=== PATIENT | male | born 1970 | race Caucasian/White ===

== ENCOUNTER 2017-05-07 16:18 | Observation (INO) | payer BC, SELFPAY ==
[2017-05-07] VITALS (9 sets, daily range): BP systolic 127–144; BP diastolic 78–89; PULSE 83–111; RESP 18–22; TEMP 36.8–37.7; O2SAT 2–97; BMI 33.5; BMI 71.8
--- NOTE | 2017-05-07 16:32 | XR_ITS ---
XR chest 2V Ordering Physician: Richy Aguilera Patient Age: 46 years: Male HISTORY: ITS.REASON: COUGH AND CHEST CONGESTION TECHNIQUE: PA lateral chest COMPARISON :No previous FINDINGS Multiple patchy areas of pneumonic infiltrate seen at the left lower lobe. Developing pneumonic consolidation most pronounced at the medial left lower lobe retrocardiac region.. Left upper lung field is clear There is also patchy infiltrates seen at the right lower lobe and likely a small patchy area of infiltrate the right middle lobe as well The heart is normal in size maryjo and mediastinal structures satisfactory. No pleural effusion. No pneumothorax. Ribs chest wall T-spine unremarkable IMPRESSION: Bibasilar pneumonia.: Patchy infiltrates are most pronounced seen throughout the LLL Most pronounced focal area of infiltrate is seen at the retrocardiac region left lower lobe Minimal Patchy infiltrates RLL and likely RML as well
--- NOTE | 2017-05-07 16:41 | HMH.EDUTC ---
[facility] [place] Disposition Clinical Impression: Thrush, Influenza A Pneumonia Qualifiers: Pneumonia type: due to influenza A virus Laterality: bilateral Lung location: lower lobe of lung Qualified Code(s): J11.00 - Influenza due to unidentified influenza virus with unspecified type of pneumonia Disposition: Still a Patient Condition on Discharge: Fair Additional Instructions: Can NOT use symbicort more often. This is NOT a rescue medication and is NOT to be increased in case of emergency or worsening symptoms. This has lead to you having thrush most likely. Time of Disposition: 18:05 (transfer to ER bed 7) Medical Decision Making Vital Signs: 05/07/17 16:34 05/07/17 17:24 05/07/17 17:25 Temperature 98.3 F Temperature Source Temporal Artery Scan Pulse Rate 89 89 Pulse Rate [Left Brachial] 111 H Respiratory Rate 20 Blood Pressure [Left Arm] 135/89 Blood Pressure Mean [Left Arm] 104 Blood Pressure Source [Left Arm] Automatic Cuff Blood Pressure Position [Left Arm] Sitting 02 Sat by Pulse Oximetry 93 L Oxygen Delivery Method Room Air 05/07/17 17:34 Temperature 98.9 F Temperature Source Tympanic Pulse Rate Pulse Rate [Left Brachial] 100 H Respiratory Rate 22 Blood Pressure [Left Arm] 129/78 Blood Pressure Mean [Left Arm] 95 Blood Pressure Source [Left Arm] Manual Cuff/ Auscultation Blood Pressure Position [Left Arm] Supine 02 Sat by Pulse Oximetry 97 Oxygen Delivery Method - Lab Data Lab Results 05/07/17 16:31: Influenza Type A Ag Positive A, Influenza Type B Ag Negative 05/07/17 16:55: Strep Scn Rapid Clinic Negative Orders (Tests/Meds): ED MEDICATIONS Discontinued Medications Generic Name Dose Route Start Last Admin Trade Name Freq PRN Reason Stop Dose Admin Albuterol/Ipratropium 3 ml 05/07/17 16:54 05/07/17 17:23 Duoneb 3ml Neb IH 05/07/17 16:55 3 ml ONCE ONE Administration ORDERS Category Date Time Status Complete Blood Count Auto Diff Stat Lab 05/07/17 16:54 Ordered Comprehensive Metabolic Panel Stat Lab 05/07/17 16:54 Ordered Creatine Kinase Stat Lab 05/07/17 16:54 Ordered Lactic Acid Stat Lab 05/07/17 16:54 Ordered Magnesium Stat Lab 05/07/17 17:13 Ordered Strep Screen Confirmation Stat Micro 05/07/17 16:55 Received - Radiology Data #1 Image(s): Chest Image Reviewed: Yes I have reviewed radiologist's interpretation virtual rad results: suspected multifocal PNA - Dany Inquiry Pt receiving controlled substance: No - Reevaluation(s) Time: 17:20 Reevaluation #1: Sherita in radiology report radiologist no longer in house. Agrees to send xray to virtual radiologist @[id number]: Lab now at BS. Pt restless, RR 24, appears SOA. Feels neb helped but is already wearing off. pt and both requesting transfer to ER because I am just that miserable . no longer feels he should remain over here. Feels muscle cramps are worsening since being here. Aware workup is in progress but adamant about transfer. @1803: Report called to Ariella in ER. Bed 7 available. [facility] [place] HPI - General Stated complaint: Fever, Cough, SoB, Congestion, Shaking Time Seen by Provider: 05/07/17 16:41 Mode of Arrival: Ambulatory Source of Information: Patient Limitations: No Limitations Description of Symptoms (Recalled from Triage Doc. by RN): C/O CHEST CONGESTION, FEVER, COUGH HEENT Symptoms (Recalled from RN notes): No Resp Symptoms (Recalled from RN notes): Yes (CHEST CONGESTION, COUGH) Skin Symptoms (Recalled from RN notes): No MS Symptoms (Recalled from RN notes): No Functional Status (Recalled from RN notes): N/A - History of Present Illness Provider Complaint: Here w/ due to cough, chest congestion, shortness of breath, weakness. Woke up morning w/ productive cough and brown sputum. Denies symptoms prior. Throughout the day, symptoms worsened. Since then, fever 100-101, bodyaches, chills, SOA, muscle cramps. PMHx asthma. Typically using symb
--- NOTE | 2017-05-07 16:53 | ED_ITS ---
[facility] [place] Disposition Clinical Impression: Thrush, Influenza A Pneumonia Qualifiers: Pneumonia type: due to influenza A virus Laterality: bilateral Lung location: lower lobe of lung Qualified Code(s): J11.00 - Influenza due to unidentified influenza virus with unspecified type of pneumonia Disposition: Still a Patient Condition on Discharge: Fair Additional Instructions: Can NOT use symbicort more often. This is NOT a rescue medication and is NOT to be increased in case of emergency or worsening symptoms. This has lead to you having thrush most likely. Time of Disposition: 18:05 (transfer to ER bed 7) Medical Decision Making Vital Signs: 05/07/17 16:34 05/07/17 17:24 05/07/17 17:25 Temperature 98.3 F Temperature Source Temporal Artery Scan Pulse Rate 89 89 Pulse Rate [Left Brachial] 111 H Respiratory Rate 20 Blood Pressure [Left Arm] 135/89 Blood Pressure Mean [Left Arm] 104 Blood Pressure Source [Left Arm] Automatic Cuff Blood Pressure Position [Left Arm] Sitting 02 Sat by Pulse Oximetry 93 L Oxygen Delivery Method Room Air 05/07/17 17:34 Temperature 98.9 F Temperature Source Tympanic Pulse Rate Pulse Rate [Left Brachial] 100 H Respiratory Rate 22 Blood Pressure [Left Arm] 129/78 Blood Pressure Mean [Left Arm] 95 Blood Pressure Source [Left Arm] Manual Cuff/ Auscultation Blood Pressure Position [Left Arm] Supine 02 Sat by Pulse Oximetry 97 Oxygen Delivery Method - Lab Data Lab Results 05/07/17 16:31: Influenza Type A Ag Positive A, Influenza Type B Ag Negative 05/07/17 16:55: Strep Scn Rapid Clinic Negative Orders (Tests/Meds): ED MEDICATIONS Discontinued Medications Generic Name Dose Route Start Last Admin Trade Name Freq PRN Reason Stop Dose Admin Albuterol/Ipratropium 3 ml 05/07/17 16:54 05/07/17 17:23 Duoneb 3ml Neb IH 05/07/17 16:55 3 ml ONCE ONE Administration ORDERS Category Date Time Status Complete Blood Count Auto Diff Stat Lab 05/07/17 16:54 Ordered Comprehensive Metabolic Panel Stat Lab 05/07/17 16:54 Ordered Creatine Kinase Stat Lab 05/07/17 16:54 Ordered Lactic Acid Stat Lab 05/07/17 16:54 Ordered Magnesium Stat Lab 05/07/17 17:13 Ordered Strep Screen Confirmation Stat Micro 05/07/17 16:55 Received - Radiology Data #1 Image(s): Chest Image Reviewed: Yes I have reviewed radiologist's interpretation virtual rad results: suspected multifocal PNA - Dany Inquiry Pt receiving controlled substance: No - Reevaluation(s) Time: 17:20 Reevaluation #1: Sherita in radiology report radiologist no longer in house. Agrees to send xray to virtual radiologist @[id number]: Lab now at BS. Pt restless, RR 24, appears SOA. Feels neb helped but is already wearing off. pt and both requesting transfer to ER because I am just that miserable . no longer feels he should remain over here. Feels muscle cramps are worsening since being here. Aware workup is in progress but adamant about transfer. @1803: Report called to Ariella in ER. Bed 7 available. [facility] [place] HPI - General Stated complaint: Fever, Cough, SoB, Congestion, Shaking Time Seen by Provider: 05/07/17 16:41 Mode of Arrival:
[2017-05-07 17:19] LABS: UTC Influenza A Antigen Positive (Negative); UTC Influenza B Antigen Negative (Negative)
[2017-05-07 17:19] LABS: UTC Strep Screen (Rapid) Negative (Negative)
[2017-05-07 18:15] LABS: Basophils # 0.2 K/mm3 (0-0.2); Basophils % 0.9 % (0.1-2.0); Eosinophils # 0.2 K/mm3 (0.0-0.4); Eosinophils % 0.7 % (0.1-12.0); Hematocrit 42.4 % (42.0-52.0); Hemoglobin 14.2 g/dL (14.1-18.0); Lymphocytes # 0.9 K/mm3 (0.7-4.5); Lymphocytes % 3.6 K/mm3 (10-50); Mean Corpuscular HGB Conc 33.5 g/dL (31.8-35.4); Mean Corpuscular Hemoglobin 28.9 pg (27.0-31.2); Mean Corpuscular Volume 86.4 fl (80-94); Mean Platelet Volume 7.4 fl (7.4-10.4); Monocytes # 0.8 K/mm3 (0.1-1.0); Monocytes % 3.4 % (1.7-9.3); Neutrophils % 91.5 % (37.0-80.0); Platelet Count 407 K/mm3 (142-424); Red Blood Count 4.91 M/mm3 (4.60-6.20)
[2017-05-07 18:18] LABS: MANUAL DIFFERENTIAL MANUAL DIFFERENTIAL (MANUAL DIFF)
[2017-05-07 18:23] LABS: Magnesium 2.4 mg/dL (1.4-2.2)
[2017-05-07 18:29] LABS: Albumin Level 3.1 gm/dL (3.4-5.0); Aspartate Amino Transferase 23 U/L (15-37); Blood Urea Nitrogen 14 mg/dL (7-18); Chloride 100 mmol/L (98-107); Creatinine Clearance Estimated 117 mL/min (0-300); Estimated Glomerular Filt Rate 65 ml/min (>60); GFR (African American) 79 ML/MIN (>60); Sodium 136 mmol/L (136-145)
[2017-05-07 18:30] LABS: Alanine Aminotransferase 36 U/L (12-78); Albumin/Globulin Ratio 0.6 (1.1-1.8); Alkaline Phosphatase 91 U/L (46-116); Anion Gap 16.5 mEq/L (5-15); Bilirubin,Total 0.4 mg/dL (0.2-1.0); Carbon Dioxide 24 mmol/L (21.0-32.0); Creatine Kinase 862 U/L (39-308); Globulin 4.9 gm/dl (1.3-3.2); Glucose 139 mg/dL (74-106); Potassium 4.5 mmoL/L (3.5-5.1)
--- NOTE | 2017-05-07 18:37 | HMH.EDGENADL ---
ED Disposition Clinical Impression: Thrush, Influenza A Pneumonia Qualifiers: Pneumonia type: due to influenza A virus Laterality: bilateral Lung location: lower lobe of lung Qualified Code(s): J11.00 - Influenza due to unidentified influenza virus with unspecified type of pneumonia Disposition: Still a Patient Condition on Discharge: Fair - Critical Care Critical Care Time: No Attestation: On 05/07/17, the high probability of a clinically significant, sudden or life threatening deterioration of the following system(s) required my full and direct attention, intervention and personal management. The time I documented below is in addition to time spent performing reported procedures but includes the following listed in this critical care notation. Medical Decision Making Vital Signs: 05/07/17 16:34 05/07/17 17:24 05/07/17 17:25 Temperature 98.3 F Temperature Source Temporal Artery Scan Pulse Rate 89 89 Pulse Rate [Left Brachial] 111 H Respiratory Rate 20 Blood Pressure [Left Arm] 135/89 Blood Pressure [Right Arm] Blood Pressure Mean [Left Arm] 104 Blood Pressure Mean [Right Arm] Blood Pressure Source [Left Arm] Automatic Cuff Blood Pressure Source [Right Arm] Blood Pressure Position [Left Arm] Sitting Blood Pressure Position [Right Arm] 02 Sat by Pulse Oximetry 93 L Oxygen Delivery Method Room Air 05/07/17 17:34 05/07/17 18:21 Temperature 98.9 F 98.2 F Temperature Source Tympanic Oral Pulse Rate Pulse Rate [Left Brachial] 100 H 95 H Respiratory Rate 22 20 Blood Pressure [Left Arm] 129/78 137/89 Blood Pressure [Right Arm] 137/89 Blood Pressure Mean [Left Arm] 95 105 Blood Pressure Mean [Right Arm] 105 Blood Pressure Source [Left Arm] Manual Cuff/ Auscultation Automatic Cuff Blood Pressure Source [Right Arm] Automatic Cuff Blood Pressure Position [Left Arm] Supine Supine Blood Pressure Position [Right Arm] Supine 02 Sat by Pulse Oximetry 97 96 Oxygen Delivery Method Room Air - Lab Data Lab Results 05/07/17 16:31: Influenza Type A Ag Positive A, Influenza Type B Ag Negative 05/07/17 16:55: Strep Scn Rapid Clinic Negative 05/07/17 18:00: WBC 24.0 H*, RBC 4.91, Hgb 14.2, Hct 42.4, MCV 86.4, MCH 28.9, MCHC 33.5, RDW 13.0, Plt Count 407, MPV 7.4, Neut % (Auto) 91.5 H, Lymph % (Auto) 3.6 L, Brewster % (Auto) 3.4, Eos % (Auto) 0.7, Baso % (Auto) 0.9, Neut # (Auto) 22.0 H, Lymph # (Auto) 0.9, Brewster # (Auto) 0.8, Eos # (Auto) 0.2, Baso # (Auto) 0.2, Total Counted 100, Neutrophils % (Manual) 92 H, Band Neutrophils % 2.0, Lymphocytes % (Manual) 4 L, Monocytes % (Manual) 2, Platelet Estimate Normal, RBC Morphology Normal 05/07/17 18:00: Sodium 136, Potassium 4.5, Chloride 100, Carbon Dioxide 24, Anion Gap 16.5 H, BUN 14, Creatinine 1.20, Estimated Creat Clear 117, Estimated GFR 65, Est GFR ( Amer) 79, Glucose 139 H, Calcium 9.0, Total Bilirubin 0.4, AST 23, ALT 36, Alkaline Phosphatase 91, Total Creatine Kinase 862 H*, Total Protein 8.0, Albumin 3.1 L, Globulin 4.9 H, Albumin/Globulin Ratio 0.6 L 05/07/17 18:00: Lactic Acid 3.2 H 05/07/17 18:00: Magnesium 2.4 H Result diagrams: 05/07/17 18:00 05/07/17 18:00 Orders (Tests/Meds): ED MEDICATIONS Generic Name Dose Route Start Last Admin Trade Name Freq PRN Reason Stop Dose Admin Sodium Chloride 1,000 mls @ 999 mls/hr 05/07/17 18:45 05/07/17 18:37 Sod Chlor 0.9% 1000ml Bag IV 05/07/17 19:45 999 mls/hr .Q1H1M BISI Administration Ceftriaxone Sodium 1 gm/ 50 mls @ 100 mls/hr 05/07/17 18:46 05/07/17 19:07 Sodium Chloride IV 05/07/17 19:15 100 mls/hr ONCE ONE Administration Discontinued Medications Generic Name Dose Route Start Last Admin Trade Name Freq PRN Reason Stop Dose Admin Albuterol/Ipratropium 3 ml 05/07/17 16:54 05/07/17 17:23 Duoneb 3ml Neb IH 05/07/17 16:55 3 ml ONCE ONE Administration Azithromycin 500 mg/ Sodium 250 mls @ 250 mls/hr 05/07/17 18:46 Chloride I
[2017-05-07 18:41] LABS: Lactic Acid 3.2 mmol/L (0.4-2.0)
[2017-05-07 19:05] LABS: Lymphocytes % 4 % (10-50); Monocytes % 2 % (2-9); Neutrophils % 92 % (42-76); Total Cells Counted 100
[2017-05-07 19:06] LABS: Platelet Estimate Normal; RBC Morphology Normal
--- NOTE | 2017-05-07 19:41 | PC.NURSE ---
TAMIFLU NOT AVAILABLE IN ER AT [facility] TIME. INFORMED PRIMARY NURSE DURING REPORT HANDOFF THAT PT WILL NEED THAT DOSE.
[2017-05-07 21:02] LABS: Troponin I < 0.02 ng/ml (0.00-0.06)
[2017-05-07 22:01] LABS: Reflex Lactic Add Lactic Reflex
[2017-05-07 22:35] LABS: Lactic Acid Follow Up (RFLX 1) 1.8 (0.4-2.0)
[2017-05-08] VITALS: BP 124/71; PULSE 84; RESP 18; TEMP 36.4
--- NOTE | 2017-05-08 01:03 | PC.NURSE ---
lAYING IN BED RESTING AT THIS TIME. WAS HAVING SOME SOA ON ADMISSION. AFTER APPLYING 2 L O2 PER NC AND SETTING A FAN IN ROOM, PT BREATHING EASIER. HAD SOME RHONCHI IN RIGHT LOWER LOBE.RESP ARE EVEN AND NONLABORED. HAD A HEADACHE, RELIEVED WITH TYLENOL. HAS BEEN AFEBRILE. IV IS PATENT, BED LOCKED IN LOW POSITION, SIDE RAILS UP X 2, CALL TIAN IN REACH. ENCOURAGED TO USE CALL LIGHT IF NEEDS. WILL CONTINUE TO MONITOR.
[2017-05-08 04:00] VITALS: BP 125/77; PULSE 80; RESP 18; TEMP 36.6; O2SAT 96
[2017-05-08 06:09] VITALS: PULSE 67; PULSE 70; O2SAT 93
[2017-05-08 07:03] LABS: Basophils % 0.1 % (0.1-2.0); Eosinophils % 0.1 % (0.1-12.0); Hemoglobin 13.7 g/dL (14.1-18.0); Lymphocytes % 5.4 K/mm3 (10-50); Mean Corpuscular HGB Conc 33.4 g/dL (31.8-35.4); Mean Corpuscular Hemoglobin 29.2 pg (27.0-31.2); Mean Corpuscular Volume 87.4 fl (80-94); Mean Platelet Volume 7.7 fl (7.4-10.4); Monocytes # 0.4 K/mm3 (0.1-1.0); Monocytes % 2.1 % (1.7-9.3); Neutrophils # 17.5 K/mm3 (1.8-7.8); Neutrophils % 92.4 % (37.0-80.0); Platelet Count 434 K/mm3 (142-424); Red Blood Count 4.69 M/mm3 (4.60-6.20); Red Cell Distribution Width 12.9 % (11.5-17.5)
[2017-05-08 07:12] LABS: Anion Gap 12.5 mEq/L (5-15); Blood Urea Nitrogen 15 mg/dL (7-18); Carbon Dioxide 25 mmol/L (21.0-32.0); Chloride 105 mmol/L (98-107); Creatinine Clearance Estimated 117 mL/min (0-300); Creatinine,Serum 0.83 mg/dL (0.70-1.30); Estimated Glomerular Filt Rate 99 ml/min (>60); GFR (African American) 120 ML/MIN (>60); Glucose 162 mg/dL (74-106); Potassium 4.5 mmoL/L (3.5-5.1); Sodium 138 mmol/L (136-145)
--- NOTE | 2017-05-08 07:18 | P.CONPHA_ITS ---
[facility] Pharmacy VTE Monitoring - Patient Demographics Admission date: 05/07/17 Report Date: 05/08/17 Time: 07:18 Allergies/Adverse Reactions: Patient Allergies No Known Allergies Allergy (Verified 05/07/17 16:37) Height: 1.8 m Weight: 233.8 kg Patient Problems: Current Active Problems Thrush (Acute) Influenza A (Acute) Pneumonia (Acute) - VTE Risk Labs: VTE Related Lab Results Hgb 14.2 g/dL (14.1-18.0) 05/07/17 18:00 Hct 42.4 % (42.0-52.0) 05/07/17 18:00 Plt Count 407 K/mm3 (142-424) 05/07/17 18:00 BUN 14 mg/dL (7-18) 05/07/17 18:00 Creatinine 1.20 mg/dL (0.70-1.30) 05/07/17 18:00 Estimated Creat Clear 117 mL/min (0-300) 05/07/17 18:00 Was VTE Risk Assessment Performed: Yes VTE Score: 7 VTE Risk Level: Moderate Risk Clinical Trial Participant: No - Prophylaxis VTE Prophylaxis Ordered?: Yes Types of VTE Prophylaxis: TEDS Knee High Location of Applied Device: Bilateral Lower Extremeties
[2017-05-08 07:21] LABS: MANUAL DIFFERENTIAL MANUAL DIFFERENTIAL (MANUAL DIFF)
[2017-05-08 07:38] VITALS: BP 123/78; RESP 20; TEMP 36.2; O2SAT 95
[2017-05-08 08:29] LABS: Lymphocytes % 5 % (10-50); Monocytes % 2 % (2-9); Neutrophils % 93 % (42-76); Platelet Estimate Normal; RBC Morphology Normal; Total Cells Counted 100
[2017-05-08 09:31] VITALS: PULSE 70; PULSE 74
[2017-05-08 10:34] VITALS: BMI 32.5
--- NOTE | 2017-05-08 12:32 | HMH.HPDC ---
General - General Admission date: 05/07/17 Discharge date: 05/08/17 *Admission Date: 05/07/17 *Chief complaint: cough *History of present illness: this wm who has ongoing cough and fever with dec energy progressive over the last few days with hx of asthma and has failed op meds and treatment presented to ed and noted to have flu and cap- The patient is sent over from urgent treatment center with pneumonia, asthma, and influenza. He has been sick for a few days with a burning sensation in his lung, shortness of breath, and wheezing. He has a productive cough and a fever. He has myalgias and cramping of his muscles, particularly in both sides of his chest today. Had some vomiting today. He had some leftover antibiotics and has taken a few. He is not currently on steroids. He did not have a flu shot this year. Sore throat today. Headaches. Flu test was positive in the urgent treatment center and chest x-ray showed pneumonia, multifocal. [facility] History I have reviewed the patient's past medical history: Yes Medical History: Reports:: Asthma Denies:: Cancer, Chronic Obstructive Pulmonary Disease (COPD), Diabetes Mellitus Type 1, Diabetes Mellitus Type 2, Hypertension, MRSA Other Surgeries: Yes: Hernia Repair, Other (hernia, full mouth extraction 2013) Amputation: No Fractures: No - *Social History Educational Level: Completed High School Smoking Status: Never smoker Tobacco Type: smokeless tobacco # Packs/Day (cigarettes): 0 #Yrs smoked (if former smoker): 0 Alcohol Intake: never Occupational Status: unemployed Housing: house Household Members: significant other - Psychiatric History Expresses thoughts of harming self/others: None Suicide Plan Description: No Plan *Family Hx:: Cancer, Coronary Artery Disease, Diabetes, Heart Attack, Hyperlipidemia, Hypertension, Stroke Review of Systems - Review of Systems Review of systems:: pertinent systems reviewed and negative unless documented below - Constitutional Reports body ache(s), Reports chills, Reports fatigue, Reports fever(s), Reports malaise - Eyes Denies change in vision - ENT Reports sore throat, Denies change in voice - *Cardiovascular Reports shortness of breath with activity - *Respiratory Reports cough - *Gastrointestinal Denies abdominal pain - *Genitourinary Denies blood in urine - *Musculoskeletal Reports joint pain, Reports body aches - Integumentary/Breasts Denies rash - *Neurologic Reports headache(s), Reports weakness, Denies dizziness Exam Vital signs and Labs for Last 24 Hours: Temp Pulse Resp BP Pulse Ox 97.1 F L 74 20 123/78 95 05/08/17 07:38 05/08/17 09:31 05/08/17 07:38 05/08/17 07:38 05/08/17 07:38 Laboratory Results - last 24 hr 05/07/17 22:10: Lactic Acid Fup @ 4Hr 1.8 05/08/17 06:25: WBC 19.0 H, RBC 4.69, Hgb 13.7 L, Hct 41.0 L, MCV 87.4, MCH 29.2, MCHC 33.4, RDW 12.9, Plt Count 434 H, MPV 7.7, Neut % (Auto) 92.4 H, Lymph % (Auto) 5.4 L, Cecil % (Auto) 2.1, Eos % (Auto) 0.1, Baso % (Auto) 0.1, Neut # (Auto) 17.5 H, Lymph # (Auto) 1.0, Cecil # (Auto) 0.4, Eos # (Auto) 0.0, Baso # (Auto) 0.0, Total Counted 100, Neutrophils % (Manual) 93 H, Lymphocytes % (Manual) 5 L, Monocytes % (Manual) 2, Platelet Estimate Normal, RBC Morphology Normal 05/08/17 06:25: Sodium 138, Potassium 4.5, Chloride 105, Carbon Dioxide 25, Anion Gap 12.5, BUN 15, Creatinine 0.83 D, Estimated Creat Clear 117, Estimated GFR 99, Est GFR ( Amer) 120 D, Glucose 162 H I & O for Last 24 hours: Intake & Output 05/06/17 05/07/17 05/08/17 05/09/17 11:59 11:59 11:59 11:59 Intake Total 240 / 840 Balance 240 / 840 Weight 233 lb 1 oz - Constitutional no acute distress - *Routine HEENT Exam Head: Present: normocephalic Eye: Present: EOMI, PERRL. Absent: conjunctival icterus ENT: Present: mucous membranes dry Comments: thrush noted on exam - *Routine Neck Exam Present: supple - *Routine Respiratory Exam
[2017-05-08 12:58] VITALS: PULSE 101; PULSE 98
== END 2017-05-08 13:24 | disposition home or self-care (01) ==
LOC: UTC 18:05 → ER 18:17 → 2ND 20:17
PROVIDERS: Nurse Practitioner Family; Admitting Provider Emergency Medicine; Emergency Provider Emergency Medicine; Visit Provider Emergency Medicine
DX: J10.08 Influenza due to other identified influenza virus with other specified pneumonia (principal); J16.8 Pneumonia due to other specified infectious organisms; J45.909 Unspecified asthma, uncomplicated
CPT/HCPCS: 36415; 71046; 80048; 80053; 82550; 83605; 83735; 84484; 85007; 85025; 87040; 87804; 87880; 93005; 93041; 94640; 94760; 96365; 96366; 96367; 96374; 96375; 99285; G0378; J0456

== ENCOUNTER 2023-12-04 13:48 | Emergency (ER) | payer MEDICARE, SELFPAY ==
[2023-12-04 13:50] VITALS: BP 125/85; PULSE 106; RESP 22; TEMP 37; O2SAT 100; BMI 28.7
--- NOTE | 2023-12-04 14:05 | HMH.EDGENADL ---
Discharge Plan Disposition Patient Disposition: Home, Self-Care Condition: Good Prescriptions Prescriptions: New sulfamethoxazole-trimethoprim [Bactrim DS] 800-160 mg tablet 1 tab PO BID 10 Days Qty: 20 0RF No Action buspirone 5 MG tablet 5 mg PO DAILY Patient Comments: venlafaxine 75 MG capsule,extended release 24hr 75 mg PO DAILY Patient Comments: trazodone 100 MG tablet 100 mg PO HS gabapentin 100 MG capsule 100 mg PO TID Patient Comments: oxycodone-acetaminophen 7.5-325 tablet 7.5 mg PO QID Patient Comments: albuterol sulfate [Ventolin HFA] 18 GM HFA aerosol inhaler 1 puff inhalation BID Patient Comments: albuterol sulfate [Ventolin HFA] 18 GM HFA aerosol inhaler 1 puff inhalation BID Patient Comments: risperidone 1 MG tablet 1.5 mg PO HS Patient Comments: loratadine 10 MG tablet 10 mg PO DAILY Patient Comments: bupropion HCl 100 MG tablet sustained-release 12 hr 100 mg PO DAILY Patient Comments: budesonide-formoterol [Symbicort] 10.2 GM HFA aerosol inhaler 2 puffs inhalation DAILY oseltamivir 75 MG capsule 75 mg PO BID Qty: 10 0RF fluconazole 100 MG tablet 100 mg PO DAILY Qty: 5 0RF benzonatate 100 MG capsule 100 mg PO TID Qty: 30 0RF prednisone 20 MG tablet 20 mg PO BID Qty: 10 0RF azithromycin 250 MG tablet 250 mg PO DIRECTED Qty: 6 0RF Rx Instructions: Take two (2) tablets on day #1, then one (1) tablet day #2 thru #5 Referrals Follow up/Referrals: Mario Ennis [Primary Care Provider] - See instructions Andrei Sandoval MD [Staff Physician] - See instructions Activity Restrictions/Add. Instructions Additional Instructions/Restrictions: Please call in the morning to make your appointment for follow-up with general surgery. Please take all of your antibiotics till gone. You may wash normally with soap and water. Change packing once a day. Return to ER for any worsening signs or symptoms including increasing redness drainage and pain. Clinical Impressions Clinical Impression: Abscess Instructions Patient Instructions: DI for Skin Abscess Print Language Print Language: Somali Discharge ED Provider: Blake Blue General Adult HPI <MYESHA Reyes - Last Filed: 12/04/23 14:36> General Chief complaint: Skin/Abscess/Foreign Body Stated complaint: skin abcess on back Time Seen by Provider: 12/04/23 14:05 History of Present Illness HPI narrative: Patient presents for evaluation of an abscess. Patient gives a 2-day history of increasing redness pain and swelling at the top of the leisa cleft. Primarily on the left side. He denies fever chills hemoptysis hematochezia melena hematemesis Related Data Home Medications ?Medication ?Instructions ?Recorded ?Confirmed albuterol sulfate 90 mcg/actuation 1 puff inhalation BID Breathing 05/07/17 05/07/17 aerosol inhaler (Ventolin HFA) problems albuterol sulfate 90 mcg/actuation 1 puff inhalation BID Breathing 05/07/17 05/07/17 aerosol inhaler (Ventolin HFA) problems buspirone 5 mg tablet 5 mg PO DAILY mood 05/07/17 05/07/17 gabapentin 100 mg capsule 100 mg PO TID Pain 05/07/17 05/07/17 loratadine 10 mg tablet 10 mg PO DAILY allergies 05/07/17 05/07/17 oxycodone-acetaminophen 7.5 mg-325 7.5 mg PO QID chronic pain 05/07/17 05/07/17 mg tablet risperidone 1 mg tablet 1.5 mg PO HS sleep 05/07/17 05/08/17 trazodone 100 mg tablet 100 mg PO HS sleep 05/07/17 05/07/17 venlafaxine 75 mg capsule,extended 75 mg PO DAILY mood 05/07/17 05/07/17 release 24 hr budesonide-formoterol HFA 160 2 puffs inhalation DAILY Asthma 05/08/17 05/08/17 mcg-4.5 mcg/actuation aerosol inhaler (Symbicort) bupropion HCl 100 mg tablet,12 hr 100 mg PO DAILY Depression 05/08/17 05/08/17 sustained-release Previous Rx's ?Medication ?Instructions ?Recorded azithromycin 250 mg tablet 250 mg PO DIRECTED #6 tabs 05/08/17 benzonatate 100 mg capsule 100 mg PO TID #30 caps 05/08/17 fluconazole 100 mg tablet 100 mg PO DAILY #5 tabs 05/08/17 oseltamivir 75 mg capsule 75 mg PO BID #10 caps 05/08/17 prednisone 20 mg tablet 20 mg PO BID #10 tabs 05/08/17 sulfamethoxazole 800 1 tab PO BID 10 days #20 tabs 12/04/23 mg-trimethoprim 160 mg tablet (Bactrim DS) Allergies Allergy/AdvReac Type Severity Reaction Status Date / Time No Known Allergies Allergy Verified 05/07/17 16:37 PFSH <MYESHA Reyes - Last Filed: 12/04/23 14:36> [facility] Disclaimer: The information contained in this section may have been updated after the patient was seen, as this information can be updated by other users. Social History Smoking Status: Never smoker second hand exposure: No alcohol intake: never current occupational status: unemployed Travel in the last 8 weeks: None household members: significant other housing: house current occupational exposures/hazards: No caffeine: Yes <MYESHA Reyes - Last Filed: 12/04/23 14:36> ROS Obtained: Yes Systems reviewed as appropriate & no additional complaints except as documented Physical Exam <MYESHA Reyes - Last Filed: 12/04/23 14:36> General General appearance: alert and in no apparent distress Respiratory Respiratory exam: Present normal lung sounds bilaterally Cardiovascular Cardiovascular exam: Present regular rate Neurological Exam Neurological exam: Present alert and oriented X3 Expanded Skin Exam Type of lesion: Present abscess Body image: 1. Abscess with erythema and induration Medical Decision Making <MYESHA Reyes - Last Filed: 12/04/23 14:36> Medical Records Screening: Per USPSTF and CDC recommendations, given the prevalence of disease in our region, it is our hospital?s policy to screen for HIV and viral Hepatitis for all patients aged 18 and over and those with ongoing risk factors. Dany Inquiry Pt receiving controlled substance: No Vital Signs: 12/04/23 13:50 12/04/23 14:41 Temperature 98.6 F 98.6 F Temperature Source Oral Pulse Rate 106 H Pulse Rate [Right] 106 H Respiratory Rate 22 22 Blood Pressure 125/85 Blood Pressure [Right Arm] 125/85 Blood Pressure Mean [Right Arm] 98 02 Sat by Pulse Oximetry 100 Oxygen Delivery Method Room Air Lab Data Lab Results 12/04/23 14:10: Hepatitis C Antibody Non reactive, Hep C Ab Comment Comment, HIV 1&2 Antibody Rapid Nonreactive Orders (Tests/Meds): ED MEDICATIONS Discontinued Medications Generic Name Dose Route Start Last Admin Trade Name Barak PRN Reason Stop Dose Admin Lidocaine HCl 10 ml 12/04/23 14:07 12/04/23 14:16 Lidocaine 1% 10ml Mdv SQ 12/04/23 14:08 10 ml ONCE ONE Administration Trimethoprim/Sulfamethoxazole 1 each 12/04/23 14:08 12/04/23 14:18 Sulfa/Trimethoprim 1 Tablet PO 12/04/23 14:09 1 each ONCE ONE Administration ORDERS Category Date Time Status HIV (1&2) Antibody Rapid Stat Lab 12/04/23 14:10 Completed Hep C Ab with Reflex to RNA Stat Lab 12/04/23 14:10 Completed Wound Culture and Gram Stain Stat Micro 12/04/23 14:15 Completed Medical Decision Narrative: In summary patient is a 53-year-old male who presents to the emergency department for evaluation of an abscess. Patient is hemodynamically stable upon arrival, afebrile. Physical exam is remarkable for a 5 cm area of erythema and induration at the top of the cleft on the left side with a central area of fluctuance. Differential diagnosis includes superficial abscess versus deep. Initial workup was considered however as patient is nontoxic and in his localized well away from concerning structures is deferred for now. Given this, after local anesthesia an incision was made with 11 blade with mau return of about 5 cc of pus and blood. Wound depths explored and is approximately 3 cm deep by 2 cm of a pus pocket. There is no tunneling. Wound was packed with half-inch gauze with a 4 x 4 to catch drainage. Given this patient is appropriate for discharge with a prescription for Bactrim with first dose given here and referred to general surgery for follow-up. Patient given strict return precautions. <Blake Blue MD - Last Filed: 12/09/23 07:10> Vital Signs: 12/04/23 13:50 12/04/23 14:41 Temperature 98.6 F 98.6 F Temperature Source Oral Pulse Rate 106 H Pulse Rate [Right] 106 H Respiratory Rate 22 22 Blood Pressure 125/85 Blood Pressure [Right Arm] 125/85 Blood Pressure Mean [Right Arm] 98 02 Sat by Pulse Oximetry 100 Oxygen Delivery Method Room Air Lab Data Lab Results 12/04/23 14:10: Hepatitis C Antibody Non reactive, Hep C Ab Comment Comment, HIV 1&2 Antibody Rapid Nonreactive Orders (Tests/Meds): ED MEDICATIONS Discontinued Medications Generic Name Dose Route Start Last Admin Trade Name Barak PRN Reason Stop Dose Admin Lidocaine HCl 10 ml 12/04/23 14:07 12/04/23 14:16 Lidocaine 1% 10ml Mdv SQ 12/04/23 14:08 10 ml ONCE ONE Administration Trimethoprim/Sulfamethoxazole 1 each 12/04/23 14:08 12/04/23 14:18 Sulfa/Trimethoprim 1 Tablet PO 12/04/23 14:09 1 each ONCE ONE Administration ORDERS Category Date Time Status HIV (1&2) Antibody Rapid Stat Lab 12/04/23 14:10 Completed Hep C Ab with Reflex to RNA Stat Lab 12/04/23 14:10 Completed Wound Culture and Gram Stain Stat Micro 12/04/23 14:15 Completed Medical Decision Narrative: In summary patient is a 53-year-old male who presents to the emergency department for evaluation of an abscess. Patient is hemodynamically stable upon arrival, afebrile. Physical exam is remarkable for a 5 cm area of erythema and induration at the top of the leisa cleft on the left side with a central area of fluctuance. Differential diagnosis includes superficial abscess versus deep. Initial workup was considered however as patient is nontoxic and in his localized well away from concerning structures is deferred for now. Given this, after local anesthesia an incision was made with 11 blade with mau return of about 5 cc of pus and blood. Wound depths explored and is approximately 3 cm deep by 2 cm of a pus pocket. There is no tunneling. Wound was packed with half-inch gauze with a 4 x 4 to catch drainage. Given this patient is appropriate for discharge with a prescription for Bactrim with first dose given here and referred to general surgery for follow-up. Patient given strict return precautions. I was consulted by the HERVE, and we discussed the complexity of the problems being addressed. I approved the treatment and management plan for this patient's care in the Emergency Department, thus performing a substantive portion of the medical decision making. Blake Blue MD Procedures <MYESHA Reyes - Last Filed: 12/04/23 14:36> Abscess I/D Site: other (Top of the leisa cleft) Side (if applicable): left Local Anesthetic: lidocaine 1% Amount of anesthesia used (mL): 8 Technique: incised with #11 blade Amount of fluid expressed (mL): 5 Irrigation: No Packing used?: plain Critical Care <MYESHA Reyes - Last Filed: 12/04/23 14:36> Critical Care Time Critical Care Time: No
--- NOTE | 2023-12-04 14:13 | PC.NURSE ---
DON AT BEDSIDE
[2023-12-04] MEDS: LIDOCAINE 1% 10ML MDV 10 ML SQ (14:16)
[2023-12-04] MEDS: SULFA/TRIMETHOPRIM 1 TABLET 1 EACH PO (14:18)
[2023-12-04 14:41] VITALS: BP 125/85; PULSE 106; RESP 22; TEMP 37; O2SAT 100
[2023-12-04 21:29] LABS: HIV (1&2) Antibody Rapid NONREACTIVE (NONREACTIVE)
[2023-12-06 06:15] LABS: HCV Ab Non Reactive (Non Reactive)
--- NOTE | 2023-12-06 10:01 | PC.NURSE ---
wound culture discussed with dr gayle, no new orders
== END 2023-12-04 14:41 | disposition home or self-care (01) ==
PROVIDERS: Emergency Provider Emergency Medicine; PCP Pediatrics
DX: L02.212 Cutaneous abscess of back [any part, except buttock and flank] (principal); B95.7 Other staphylococcus as the cause of diseases classified elsewhere
CPT/HCPCS: 10060; 86803; 87070; 87077; 87186; 87205; 87389; 99283

== ENCOUNTER 2024-10-11 11:35 | Day surgery (SDC) | payer MEDICARE, SELFPAY ==
[2024-10-11] VITALS (10 sets, daily range): BP systolic 114–136; BP diastolic 80–100; PULSE 74–112; RESP 16–20; TEMP 36.7–36.9; O2SAT 94–100; BMI 30.7
--- NOTE | 2024-10-11 11:48 | ECG_ITS ---
APPROVED REPORT Exam: Resting ECG HR:92 bpm ECG Measurements Heart Rate 92 AXES ME 178 P 74 QRSd 114 QRS -75 QT 353 T 76 QTc 403 Conclusion SINUS RHYTHM PATTERN CONSISTENT WITH PULMONARY DISEASE LEFT ANTERIOR FASCICULAR BLOCK [QRS AXIS <= -45, QR IN I, RS IN II] ABNORMAL ECG Electronically signed by : KEISHA ABARCA, 10/12/2024 17:59:55
[2024-10-11] MEDS: ONDANSETRON 4MG/2ML VIAL 4 MG IV (11:49)
--- OUTSIDE RECORDS SUMMARY | 2024-10-11 11:49 | XMS_ITS | Clinical Summary ---
Author Organization [facility] [place] [address] Care Team Providers Care Entry Level Buyer Name Role Phone Unavailable Primary Care Provider Unavailabl e Social History Tobacco Use Types Packs/Day Years Used Date Smoking Tobacco: Never Assessed Sex and Gender Information Value Date Recorded Sex Assigned at Not on file Legal Sex Male 10:44 AM EDT Gender Identity Not on file Sexual Orientation Not on file Plan of Treatment Health Maintenance Due Date Last Done Comments HIV Screening 1984 Hepatitis C Screening 07/10/1987 DTaP/Tdap/Td Vaccines (1 - Tdap) 1988 Hepatitis B Vaccines (1 of 3 - 19+ 3-dose series) 1988 Diabetes Screening 2014 Pneumococcal Vaccines: 50+ Y ears (1 of 1 - PCV) 07/10/2019 Prostate Cancer Counseling 07/10/2019 Zoster Vaccines (1 of 2) 07/10/2019 COVID-19 Vaccines (1 - 2023- season) 2023 Influenza Vaccines 10/16/2024 HIB Vaccines Aged Out No longer eligi ble based on patient's age to complete this topic HISTORICAL VIEW: MMR Vaccines Discontinued HISTORICAL VIEW: Varicella Vaccines Discontinued HPV Vaccines Aged Out No longer eligi ble based on patient's age to complete this topic Hepatitis A Vaccines Aged Out No long er eligible based on patient's age to complete this topic IPV Vaccines Aged Out No longer eligi ble based on patient's age to complete this topic Meningococcal Vaccines Aged Out No lo nger eligible based on patient's age to complete this topic Rotavirus Vaccines Aged Out No longer eligible based on patient's age to complete this topic
--- OUTSIDE RECORDS SUMMARY | 2024-10-11 11:49 | XMS_ITS | Clinical Summary ---
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 Medications No information available. Medications Administered No information available. Allergies, Adverse Reactions, Alerts No information available. Results No information available. Plan of Care No information available. Procedures No information available. Vital Signs No information available. Immunizations No information available. Advance Directives No information available.
--- OUTSIDE RECORDS SUMMARY | 2024-10-11 11:50 | XMS_ITS | Clinical Summary ---
Author Organization 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 30 Tab 6 08/19/19 15 Active SYMBICORT 160-4.5 mcg/actuation Inhl HFA Aerosol Inhaler INHALE 2 PUFFS INTO THE LUNGS 2 TIMES DAILY. 1 Inhaler 12 11/24/19 15 Active zolpidem (AMBIEN) 10 mg Oral TabletIndications :Insomnia, persistent Take 1 Tab by mouth nightly as needed for Sleep. 30 Tab 3 03/15/20 15 Active bisacodyl (DULCOLAX) [address] 1 Suppository rectally daily as needed for Constipation for up to 60 days. 30 Suppository 2 04/19/19 16 Active busPIRone (BUSPAR) 5 mg Oral Tablet Take 5 mg by mouth 2 times daily. Active traZODone (DESYREL) 100 mg Oral Tablet Take 100 mg by mouth nightly. Active venlafaxine (EFFEXOR-XR) 75 mg Oral Capsule, Sust. Release 24 hr Take 75 mg by mouth daily. Active venlafaxine (EFFEXOR-XR) 150 mg Oral Capsule, Sust. Release 24 hr Take 150 mg by mouth daily. Active gabapentin (NEURONTIN) 100 mg Oral CapsuleIndication s:Chronic cluster headache, not intractable,Pain, DDD (degenerative disc disease), lumbar,Radiculopa thy of thoracolumbar region,Bilateral sciatica Take 1 Cap by mouth 3 times daily for 90 days. 90 Cap 2 12/28/19 17 Active oxyCODONE-acetami nophen (PERCOCET) 7.5-325 mg Oral TabletIndications :Chronic cluster headache, not intractable,Pain, DDD (degenerative disc disease), lumbar,Radiculopa thy of thoracolumbar region,Bilateral sciatica Take 1 Tab by mouth 4 times daily as needed for Pain for up to 30 days. 120 Tab 03/22/19 18 Active clotrimazole (LOTRIMIN) 1 % Top Cream Apply topically 2 times daily. 45 g 1 03/22/19 18 Active cephALEXin (KEFLEX) 250 mg Oral Capsule tid 21 Cap 1 06/11/19 18 Active VENTOLIN HFA 90 mcg/actuation Inhl HFA Aerosol InhalerIndication s:Screening for cardiovascular, respiratory, and genitourinary diseases,Screenin g for endocrine/metabol ic/immunity disorders INHALE 2 PUFFS INTO THE LUNGS EVERY 4 HOURS NEEDED FOR WHEEZING 18 g 3 08/02/19 18 Active loratadine (CLARITIN) 10 mg Oral TabletIndications :Seasonal allergic rhinitis, unspecified trigger Take 1 Tab by mouth daily. 90 Tab 1 12/12/19 18 Active Active Problems Patient Care Coordination No te Formatting of this note migh t be different from the original. Contract/Consent 11-07-11 Drug Screen 02/21/17 [place] Dany -03/13/16 #[id number], 02/21/17 [place] SOAPP Care gap audit completed by Sofiya Figueroa RN on 07/30/2023. NO CONTROLLED MEDS STHG Problem Noted Date Diagnosed Date Hyperglycemia 03/09/2015 Colitis, acute 03/07/2015 Elevated transaminase level 03/07/2015 Epigastric pain 03/07/2015 Acute intractable headache 03/07/2015 Insomnia, persistent 03/03/2015 DDD (degenerative disc disease), lumbosacral Bilateral sciatica 10/29/2014 Primary osteoarthritis of both shoulders 015 Leukocytosis 10/06/2012 Anemia 10/06/2012 Acute renal insufficiency 10/05/2012 Hydronephrosis, right 10/05/2012 Hypokalemia 10/05/2012 Acute right flank pain 10/05/2012 Radiculopathy 10/05/2012 Nausea & vomiting 10/05/2012 Ureterolithiasis 10/05/2012 Constipation 10/05/2012 Pain 02/20/2012 Stress 11/10/2010 ED (erectile dysfunction) Asthma Obesity Chronic headaches Resolved Problems Problem Noted Date Diagnosed Date Resolved Date DDD (degenerative disc disease), lumbar 10/05/2012 01/14/2017 DDD (degenerative disc disease) 07/22/2012 01/14/2017 DM (diabetes mellitus) 07/23 Immunizations Immunization Administration Dates Next Due Influenza Vaccine Quadrivalent 8(Deferred: Patient Refused),02/01/2016(Deferred: Patient Refused) Influenza Virus Vaccine Quad rivalant, Flublok 01/08/2018(Deferred: Patient Refused) Tdap 10/18/2006 Surgical History Surgery Date Site/Laterality Comments WISDOM TOOTH EXTRACTION UMBILICAL HERNIA REPAIR 12/29/2010 Abdomen/N/A UMBILICAL HERNIA REPAIR WITH MESH ; Surgeon: Aj Ferguson MD; Location: [facility] MAIN OR; Service: General Medical devices from this surgery are in the Medical Devices section. CYSTOSCOPY 10/06/2012 Ureter/Right Cystoscopy, Right Ureteroscopy Stone Manipulation and Insertion of Right Ureteral Stent; Surgeon: Joaquin Peñaloza MD; Location: [facility] MAIN OR; Service: Urology Medical devices from this surgery are in the Medical Devices section. CYSTOSCOPY 10/06/2012 Surgeon: Joaquin Peñaloza MD; Location: [facility] MAIN OR; Service: Urology Medical devices from this surgery are in the Medical Devices section. MOUTH SURGERY mouth extraction Medical History Medical History Date Comments Allergy Asthma Depression Meningitis Kidney stones Back pain Pneumonia COPD (chronic obstructive pulmonary disease) (HC C) Shortness of breath Arthritis Family History Medical History Relation Name Comments Heart Disease Father cad Relation Name Status Comments Father Social History Tobacco Use Types Packs/Day Years Used Date Smoking Tobacco: Never Smokeless Tobacco: Current Chew Tobacco Cessation:Ready to Q uit: No Alcohol Use Standard Drinks/Week Comments No 0 (1 standard drink = 0.6 oz pur e alcohol) Sex and Gender Information Value Date Recorded Sex Assigned at Not on file Legal Sex Male 10:19 PM EDT Gender Identity Not on file Sexual Orientation Not on file Obstetrics History Last Filed Vital Signs Vital Sign Reading Time Taken Comments Blood Pressure 102/76 01/08/2018 1:33 PM EDT Pulse 84 01/08/2018 1:33 PM EDT Temperature 36.7 C (98 F) 01/08/2018 1:33 PM EDT Respiratory Rate 17 01/08/2018 1:33 PM EDT Oxygen Saturation 98% 01/08/2018 1:33 PM EDT Inhaled Oxygen Concentration - - Weight 102.8 kg (226 lb 9.6 oz) 01/08/2018 1:33 PM EDT Height 177.8 cm (5' 10 ) 01/08/2018 1:33 PM EDT Body Mass Index 32.51 01/08/2018 1:33 PM EDT Plan of Treatment Health Maintenance Due Date Last Done Comments Hepatitis B Vaccine (1 of 3 - 19+ 3-dose series) 1988 Cologuard 2014 Colon Cancer Screening 2014 Colonoscopy 2014 FIT 2014 Sigmoidoscopy 2014 Virtual Colonography 2014 DTaP/TDaP/Td (2 - Td or Tdap) 10/18/2016 10/18/2006 Annual Wellness Exam 12/27/2017 12/27/2016 Pneumococcal Vaccine 50+ (1 of 1 - PCV) 07/10/2019 Zoster (1 of 2) 07/10/2019 COVID-19 Vaccine ( - 2023-2 5 season) 2023 Influenza Vaccine (#1) 2024 7 (Declined), 02/01/2016 (Declined), 03/15/2015 (Declined) Meningococcal B Vaccine Aged Out No l onger eligible based on patient's age to complete this topic Goals Goal Patient Goal Type Associated Problems Recent Progress Patient-Stated? Author Blood Pressure < 140/90 Blood Pressure 102/76(2017 1:33 PM EDT) No Lacy Alcantara, DEYSI BMI (Calculated) < 30 General 32.6(01/09/20 18 1:33 PM EDT) No Lacy Alcantara RMA Maintain a healthy diet, exercise regularly and maintain an ideal body weight General No Maria Esther Earl RMA Stay Tobacco Free Lifestyle No Maria Esther Earl RMA HEMOGLOBIN A1C < 7.0 Result Component 5.6( 6 1:52 PM EDT) No Lacy Alcantara RMA Medical Devices Implanted Type Area Head Start Director Device Identifier Shelf Expiration Date Model / Serial / Lot Stent Ureteral Contour 6 X 26 #[id number] - [id number] Implanted:Qty : 1 on 10/06/2012 by Joaquin Peñaloza MD at [facility] Stent Right: Ureter [employer]:MICROVASIVE: UROLOGY 04/18/2015 [id number] / / [id number] Mesh Ventralex Small Pearblossom - [id number] Implanted:Qty : 1 on 01/01/2011 by Aj Ferguson MD at [facility] N/A: Umbilical CR BARD:DAVOL 07/17/2015 [id number] / / [id number] Advance Directives For more information, please contact: [phone] * Full Code (Latest Code Status on File) Date Activated Date Inactivated Comments 03/07/2015 10:25 AM 03/09/2015 11:16 PM * Full Code Date Activated Date Inactivated Comments 10/28/2014 4:48 PM 10/29/2014 9:37 PM * Full Code Date Activated Date Inactivated Comments 07/22/2012 3:32 PM 07/24/2012 12:41 AM
[2024-10-11 11:51] LABS: Hematocrit 50.8 % (42.0-52.0); Hemoglobin 17.3 g/dL (14.1-18.0); Immature Granulocytes % 0.2 %; Mean Corpuscular HGB Conc 34.1 g/dL (31.8-35.4); Mean Corpuscular Hemoglobin 29.1 pg (27.0-31.2); Mean Corpuscular Volume 85.5 fl (80-94); Nucleated Red Blood Cells % 0 %; Platelet Count 454 K/mm3 (142-424); Red Blood Count 5.94 M/mm3 (4.60-6.20); Red Cell Distribution Width-SD 42.2 fL; White Blood Count 12.5 K/mm3 (4.8-10.8)
--- NOTE | 2024-10-11 11:54 | PC.NURSE ---
Patient alert and oriented, VSS. Respirations even and unlabored. Patient controlling secretions without any difficulty.
[2024-10-11 12:04] LABS: Albumin Level 5.0 g/dl (3.5-5.0); Chloride 107 mmol/L (98-107)
--- NOTE | 2024-10-11 12:04 | HMH.EDGENADL ---
Discharge Plan Disposition Patient Disposition: Admitted Condition: Serious Prescriptions Prescriptions: No Action buspirone 5 MG tablet 5 mg PO DAILY Patient Comments: venlafaxine 75 MG capsule,extended release 24hr 75 mg PO DAILY Patient Comments: trazodone 100 MG tablet 100 mg PO HS gabapentin 100 MG capsule 100 mg PO TID Patient Comments: oxycodone-acetaminophen 7.5-325 tablet 7.5 mg PO QID Patient Comments: albuterol sulfate [Ventolin HFA] 18 GM HFA aerosol inhaler 1 puff inhalation BID Patient Comments: albuterol sulfate [Ventolin HFA] 18 GM HFA aerosol inhaler 1 puff inhalation BID Patient Comments: risperidone 1 MG tablet 1.5 mg PO HS Patient Comments: loratadine 10 MG tablet 10 mg PO DAILY Patient Comments: bupropion HCl 100 MG tablet sustained-release 12 hr 100 mg PO DAILY Patient Comments: budesonide-formoterol [Symbicort] 10.2 GM HFA aerosol inhaler 2 puffs inhalation DAILY oseltamivir 75 MG capsule 75 mg PO BID Qty: 10 0RF fluconazole 100 MG tablet 100 mg PO DAILY Qty: 5 0RF benzonatate 100 MG capsule 100 mg PO TID Qty: 30 0RF prednisone 20 MG tablet 20 mg PO BID Qty: 10 0RF azithromycin 250 MG tablet 250 mg PO DIRECTED Qty: 6 0RF Rx Instructions: Take two (2) tablets on day #1, then one (1) tablet day #2 thru #5 sulfamethoxazole-trimethoprim [Bactrim DS] 800-160 mg tablet 1 tab PO BID 10 Days Qty: 20 0RF Referrals Follow up/Referrals: Provider,Referral, MD [Referring, Medical] - See instructions Clinical Impressions Clinical Impression: Esophageal obstruction due to food impaction Instructions Patient Instructions: DI for Acute Abdominal Pain Print Language Print Language: Bhutanese Discharge ED Provider: Momo Conley General Adult HPI <MYESHA Reyes - Last Filed: 10/11/24 12:17> General Chief complaint: Abdominal Pain Stated complaint: Something Stuck in Throat Time Seen by Provider: 10/11/24 11:41 Mode of Arrival: Ambulatory Source of Information: Patient Description of Symptoms (Recalled from ER Triage Doc. by RN): Patient presents to ED for food stuck in his esophagus. Patient reports he was eating steak and corn yesterday and believes a piece of steak got caught in his throat. Unable to keep any food or drink down without vomiting it back up. History of Present Illness HPI narrative: Patient presents for a food impaction. Patient was eating pot roast yesterday and felt something get stuck. Initially he thought it was stuck in his upper airway but was able to get it down further. He has tried oral intake he has tried jumping up and down raising his hands over his head however nothing will pass. He has been intolerant of anything by mouth including his own saliva. He denies any shortness of breath fever chills hemoptysis hematochezia melena he is nauseated but no vomiting or diarrhea. Related Data Home Medications ?Medication ?Instructions ?Recorded ?Confirmed albuterol sulfate 90 mcg/actuation 1 puff inhalation BID Breathing 05/07/17 05/07/17 aerosol inhaler (Ventolin HFA) problems albuterol sulfate 90 mcg/actuation 1 puff inhalation BID Breathing 05/07/17 05/07/17 aerosol inhaler (Ventolin HFA) problems buspirone 5 mg tablet 5 mg PO DAILY mood 05/07/17 05/07/17 gabapentin 100 mg capsule 100 mg PO TID Pain 05/07/17 05/07/17 loratadine 10 mg tablet 10 mg PO DAILY allergies 05/07/17 05/07/17 oxycodone-acetaminophen 7.5 mg-325 7.5 mg PO QID chronic pain 05/07/17 05/07/17 mg tablet risperidone 1 mg tablet 1.5 mg PO HS sleep 05/07/17 05/08/17 trazodone 100 mg tablet 100 mg PO HS sleep 05/07/17 05/07/17 venlafaxine 75 mg capsule,extended 75 mg PO DAILY mood 05/07/17 05/07/17 release 24 hr budesonide-formoterol HFA 160 2 puffs inhalation DAILY Asthma 05/08/17 05/08/17 mcg-4.5 mcg/actuation aerosol inhaler (Symbicort) bupropion HCl 100 mg tablet,12 hr 100 mg PO DAILY Depression 05/08/17 05/08/17 sustained-release Previous Rx's ?Medication ?Instructions ?Recorded azithromycin 250 mg tablet 250 mg PO DIRECTED #6 tabs 05/08/17 benzonatate 100 mg capsule 100 mg PO TID #30 caps 05/08/17 fluconazole 100 mg tablet 100 mg PO DAILY #5 tabs 05/08/17 oseltamivir 75 mg capsule 75 mg PO BID #10 caps 05/08/17 prednisone 20 mg tablet 20 mg PO BID #10 tabs 05/08/17 sulfamethoxazole 800 1 tab PO BID 10 days #20 tabs 12/03/ mg-trimethoprim 160 mg tablet (Bactrim DS) Allergies Allergy/AdvReac Type Severity Reaction Status Date / Time No Known Allergies Allergy Verified 05/07/17 16:37 PFSH <MYESHA Reyes - Last Filed: 10/11/24 12:17> [facility] Disclaimer: The information contained in this section may have been updated after the patient was seen, as this information can be updated by other users. Social History Smoking Status: Never smoker second hand exposure: No alcohol intake: never current occupational status: unemployed Travel in the last 8 weeks?: None household members: significant other housing: house current occupational exposures/hazards: No caffeine: Yes Have you lived/traveled outside US in past 30 days?: No Contact w/someone who lives/traveled outside US past 30 days?: No Exposure to someone with infectious disease in past 14 days?: No Do you have a fever (greater than 100.4 F or 38 C)?: No Have you tested positive for COVID-19?: No Exposed to someone with COVID-19 in past 14 days?: No Do you have a sore throat?: No Do you have a cough?: No Do you have any weakness?: No Do you have any diarrhea?: No Are you experiencing any unusual bleeding?: No Do you have any muscle aches/pain?: No Do you have any abdominal pain?: No Are you experiencing loss of taste or smell?: No Other Medical History Have you received the Flu Vaccine for this season: No Have you received the Pneumonia Vaccine: No <MYESHA Reyes - Last Filed: 10/11/24 12:17> ROS Obtained: Yes Systems reviewed as appropriate & no additional complaints except as documented Physical Exam <MYESHA Reyes - Last Filed: 10/11/24 12:17> General General appearance: alert and in no apparent distress Respiratory Respiratory exam: Present normal lung sounds bilaterally Cardiovascular Cardiovascular exam: Present regular rate Neurological Exam Neurological exam: Present alert and oriented X3 Medical Decision Making <MYESHA Reyes - Last Filed: 10/11/24 12:17> Medical Records Medical records reviewed: Yes I reviewed the patient's medical records. Screening: Per USPSTF and CDC recommendations, given the prevalence of disease in our region, it is our hospital?s policy to screen for HIV and viral Hepatitis for all patients aged 18 and over and those with ongoing risk factors. Dany Inquiry Pt receiving controlled substance: No Vital Signs: 10/11/24 11:39 10/11/24 11:41 10/11/24 11:41 Temperature 98.4 F 98.4 F Temperature Source Oral Pulse Rate 112 H 96 H Pulse Rate [Right] 96 H Respiratory Rate 20 20 Blood Pressure 124/95 H 124/95 H Blood Pressure [Right Arm] 124/95 H Blood Pressure Mean [Right Arm] 104 Blood Pressure Source [Right Arm] Blood Pressure Position [Right Arm] 02 Sat by Pulse Oximetry 98 95 95 Oxygen Delivery Method Room Air Room Air 10/11/24 12:00 10/11/24 12:19 Temperature Temperature Source Pulse Rate 80 Pulse Rate [Right] 74 Respiratory Rate 18 Blood Pressure 119/80 Blood Pressure [Right Arm] 119/80 Blood Pressure Mean [Right Arm] 93 Blood Pressure Source [Right Arm] Automatic Cuff Blood Pressure Position [Right Arm] Sitting 02 Sat by Pulse Oximetry 95 97 Oxygen Delivery Method Room Air Room Air Lab Data Lab Results 10/11/24 11:41: WBC 12.5 H, RBC 5.94, Hgb 17.3, Hct 50.8, MCV 85.5, MCH 29.1, MCHC 34.1, RDW 13.4, Plt Count 454 H, MPV 9.3, Neut % (Auto) 67.6, Lymph % (Auto) 24.3, Martin % (Auto) 5.6, Eos % (Auto) 1.3, Baso % (Auto) 1.0, Neut # (Auto) 8.5 H, Lymph # (Auto) 3.1, Martin # (Auto) 0.7, Eos # (Auto) 0.2, Baso # (Auto) 0.1, Sodium 141, Potassium 3.9, Chloride 107, Carbon Dioxide 23, Anion Gap 14.9, BUN 20, Creatinine 1.10, Estimated Creat Clear 107, Estimated GFR 69, Est GFR ( Amer) 84, Glucose 91, Calcium 10.1, Total Bilirubin 0.9, AST 33, ALT 22, Alkaline Phosphatase 92, Total Protein 8.4 H, Albumin 5.0, Globulin 3.4 H, Albumin/Globulin Ratio 1.5 10/11/24 11:41 10/11/24 11:41 Orders (Tests/Meds): ED MEDICATIONS Discontinued Medications Generic Name Dose Route Start Last Admin Trade Name Barak PRN Reason Stop Dose Admin Ondansetron HCl 4 mg 10/11/24 11:41 10/11/24 11:49 Ondansetron 4mg/2ml Vial IV 10/11/24 11:42 4 mg ONCE ONE Administration ORDERS Category Date Time Status CBC w/Auto Diff [Complete Blood Count Auto Diff] Stat Lab 10/11/24 11:41 Completed CMP [Comprehensive Metabolic Panel] Stat Lab 10/11/24 11:41 Completed EKG Request [ECG Request] Stat Y 10/11/24 11:41 Ordered Medical Decision Narrative: In summary patient is a 54-year-old male who presents to the emergency department for evaluation of food impaction. Patient is hemodynamically stable upon arrival, afebrile. Physical exam is remarkable for clear breath sounds with no increased work of breathing adventitious sounds or accessory muscle use, abdomen is soft and nontender no rebound no guarding no rigidity. Bowel sounds normal active.. Differential diagnosis includes food impaction versus esophagitis however given the patient's inability to tolerate even his own secretions alternative diagnosis is not pursued or worked up. I had interactive discussion with Dr. Pearson of general surgery about patient presentation SANDRA and management and he will be going to the operating room for emergent endoscopy. <Momo Conley MD - Last Filed: 10/11/24 12:27> Vital Signs: 10/11/24 11:39 10/11/24 11:41 10/11/24 11:41 Temperature 98.4 F 98.4 F Temperature Source Oral Pulse Rate 112 H 96 H Pulse Rate [Right] 96 H Respiratory Rate 20 20 Blood Pressure 124/95 H 124/95 H Blood Pressure [Right Arm] 124/95 H Blood Pressure Mean [Right Arm] 104 Blood Pressure Source [Right Arm] Blood Pressure Position [Right Arm] 02 Sat by Pulse Oximetry 98 95 95 Oxygen Delivery Method Room Air Room Air 10/11/24 12:00 10/11/24 12:19 Temperature Temperature Source Pulse Rate 80 Pulse Rate [Right] 74 Respiratory Rate 18 Blood Pressure 119/80 Blood Pressure [Right Arm] 119/80 Blood Pressure Mean [Right Arm] 93 Blood Pressure Source [Right Arm] Automatic Cuff Blood Pressure Position [Right Arm] Sitting 02 Sat by Pulse Oximetry 95 97 Oxygen Delivery Method Room Air Room Air Lab Data Lab Results 10/11/24 11:41: WBC 12.5 H, RBC 5.94, Hgb 17.3, Hct 50.8, MCV 85.5, MCH 29.1, MCHC 34.1, RDW 13.4, Plt Count 454 H, MPV 9.3, Neut % (Auto) 67.6, Lymph % (Auto) 24.3, Martin % (Auto) 5.6, Eos % (Auto) 1.3, Baso % (Auto) 1.0, Neut # (Auto) 8.5 H, Lymph # (Auto) 3.1, Martin # (Auto) 0.7, Eos # (Auto) 0.2, Baso # (Auto) 0.1, Sodium 141, Potassium 3.9, Chloride 107, Carbon Dioxide 23, Anion Gap 14.9, BUN 20, Creatinine 1.10, Estimated Creat Clear 107, Estimated GFR 69, Est GFR ( Amer) 84, Glucose 91, Calcium 10.1, Total Bilirubin 0.9, AST 33, ALT 22, Alkaline Phosphatase 92, Total Protein 8.4 H, Albumin 5.0, Globulin 3.4 H, Albumin/Globulin Ratio 1.5 Orders (Tests/Meds): ED MEDICATIONS Discontinued Medications Generic Name Dose Route Start Last Admin Trade Name Freq PRN Reason Stop Dose Admin Ondansetron HCl 4 mg 10/11/24 11:41 10/11/24 11:49 Ondansetron 4mg/2ml Vial IV 10/11/24 11:42 4 mg ONCE ONE Administration ORDERS Category Date Time Status CBC w/Auto Diff [Complete Blood Count Auto Diff] Stat Lab 10/11/24 11:41 Completed CMP [Comprehensive Metabolic Panel] Stat Lab 10/11/24 11:41 Completed EKG Request [ECG Request] Stat Y 10/11/24 11:41 Ordered Medical Decision Narrative: In summary patient is a 54-year-old male who presents to the emergency department for evaluation of food impaction. Patient is hemodynamically stable upon arrival, afebrile. Physical exam is remarkable for clear breath sounds with no increased work of breathing adventitious sounds or accessory muscle use, abdomen is soft and nontender no rebound no guarding no rigidity. Bowel sounds normal active.. Differential diagnosis includes food impaction versus esophagitis however given the patient's inability to tolerate even his own secretions alternative diagnosis is not pursued or worked up. I had interactive discussion with Dr. Pearson of general surgery about patient presentation SANDRA and management and he will be going to the operating room for emergent endoscopy. Momo Conley: EKG independently interpreted by me rate is 92, rhythm is regular, axis is leftward deviated, no ST elevation in anatomical contiguous leads, QTc 403. Hematologic labs are nonactionable. Critical Care <MYESHA Reyes - Last Filed: 10/11/24 12:17> Critical Care Time Critical Care Time: No
[2024-10-11 12:05] LABS: Potassium 3.9 mmoL/L (3.5-5.1); Sodium 141 mmol/L (136-145)
[2024-10-11 12:07] LABS: Blood Urea Nitrogen 20 mg/dl (9-20); Creatinine Clearance Estimated 107 mL/min (50-200); Creatinine,Serum 1.10 mg/dl (0.66-1.25); Estimated Glomerular Filt Rate 69 ml/min (>60); GFR (African American) 84 ML/MIN (>60)
[2024-10-11 12:08] LABS: Alanine Aminotransferase 22 U/L (12-78); Albumin/Globulin Ratio 1.5 (1.1-1.8); Alkaline Phosphatase 92 U/L (38-126); Anion Gap 14.9 mEq/L (5-15); Aspartate Amino Transferase 33 U/L (17-59); Bilirubin,Total 0.9 mg/dl (0.2-1.3); Calcium 10.1 mg/dl (8.4-10.2); Carbon Dioxide 23 mmol/L (22.0-30.0); Globulin 3.4 g/dL (1.3-3.2); Glucose 91 mg/dl (74-100); Total Protein,Serum 8.4 g/dl (6.3-8.2)
--- NOTE | 2024-10-11 12:15 | PC.NURSE ---
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
--- NOTE | 2024-10-11 12:55 | EXP.GEN.HP ---
HPI HPI HPI: This is a 54-year-old gentleman who presented to the emergency department earlier today with increasing dysphagia and concerns for esophageal foreign body. See HPI forwarded from emergency department evaluation below. Forwarded from emergency department evaluation: General Chief complaint: Abdominal Pain Stated complaint: Something Stuck in Throat Time Seen by Provider: 10/11/24 11:41 Mode of Arrival: Ambulatory Source of Information: Patient Description of Symptoms (Recalled from ER Triage Doc. by RN): Patient presents to ED for food stuck in his esophagus. Patient reports he was eating steak and corn yesterday and believes a piece of steak got caught in his throat. Unable to keep any food or drink down without vomiting it back up. History of Present Illness HPI narrative: Patient presents for a food impaction. Patient was eating pot roast yesterday and felt something get stuck. Initially he thought it was stuck in his upper airway but was able to get it down further. He has tried oral intake he has tried jumping up and down raising his hands over his head however nothing will pass. He has been intolerant of anything by mouth including his own saliva. He denies any shortness of breath fever chills hemoptysis hematochezia melena he is nauseated but no vomiting or diarrhea. [facility] Disclaimer: The information contained in this section may have been updated after the patient was seen, as this information can be updated by other users. Social History Smoking Status: Never smoker second hand exposure: No alcohol intake: never current occupational status: unemployed Travel in the last 8 weeks?: None household members: significant other housing: house current occupational exposures/hazards: No caffeine: Yes Have you lived/traveled outside US in past 30 days?: No Contact w/someone who lives/traveled outside US past 30 days?: No Exposure to someone with infectious disease in past 14 days?: No Do you have a fever (greater than 100.4 F or 38 C)?: No Have you tested positive for COVID-19?: No Exposed to someone with COVID-19 in past 14 days?: No Do you have a sore throat?: No Do you have a cough?: No Do you have any weakness?: No Do you have any diarrhea?: No Are you experiencing any unusual bleeding?: No Do you have any muscle aches/pain?: No Do you have any abdominal pain?: No Are you experiencing loss of taste or smell?: No Other Medical History Have you received the Flu Vaccine for this season: No Have you received the Pneumonia Vaccine: No Review of Systems Review of Systems Review of systems:: pertinent systems reviewed and negative unless documented below *Gastrointestinal Gastrointestinal: Reports as per [facility] Meds Home Medications and Allergies Home Medications ?Medication ?Instructions ?Recorded ?Confirmed ?Type albuterol sulfate 90 mcg/actuation 1 puff inhalation BID Breathing 05/07/17 05/07/17 History aerosol inhaler (Ventolin HFA) problems albuterol sulfate 90 mcg/actuation 1 puff inhalation BID Breathing 05/07/17 05/07/17 History aerosol inhaler (Ventolin HFA) problems buspirone 5 mg tablet 5 mg PO DAILY mood 05/07/17 05/07/17 History gabapentin 100 mg capsule 100 mg PO TID Pain 05/07/17 05/07/17 History loratadine 10 mg tablet 10 mg PO DAILY allergies 05/07/17 05/07/17 History oxycodone-acetaminophen 7.5 mg-325 7.5 mg PO QID chronic pain 05/07/17 05/07/17 History mg tablet risperidone 1 mg tablet 1.5 mg PO HS sleep 05/07/17 05/08/17 History trazodone 100 mg tablet 100 mg PO HS sleep 05/07/17 05/07/17 History venlafaxine 75 mg capsule,extended 75 mg PO DAILY mood 05/07/17 05/07/17 History release 24 hr azithromycin 250 mg tablet 250 mg PO DIRECTED #6 tabs 05/08/17 Rx benzonatate 100 mg capsule 100 mg PO TID #30 caps 05/08/17 Rx budesonide-formoterol HFA 160 2 puffs inhalation DAILY Asthma 05/08/17 05/08/17 History mcg-4.5 mcg/actuation aerosol inhaler (Symbicort) bupropion HCl 100 mg tablet,12 hr 100 mg PO DAILY Depression 05/08/17 05/08/17 History sustained-release fluconazole 100 mg tablet 100 mg PO DAILY #5 tabs 05/08/17 Rx oseltamivir 75 mg capsule 75 mg PO BID #10 caps 05/08/17 Rx prednisone 20 mg tablet 20 mg PO BID #10 tabs 05/08/17 Rx sulfamethoxazole 800 1 tab PO BID 10 days #20 tabs 12/04/23 Rx mg-trimethoprim 160 mg tablet (Bactrim DS) pantoprazole 40 mg tablet,delayed 40 mg PO DAILY #90 tabs 10/11/24 Rx release (Protonix) New Prescriptions to Start Prescriptions: pantoprazole [Protonix] MichelMoises Santos Allergies Allergy/AdvReac Type Severity Reaction Status Date / Time No Known Allergies Allergy Verified 05/07/17 16:37 Exam Data for Last 24 hours Vital signs and Labs for Last 24 Hours: Temp Pulse Resp BP Pulse Ox O2 Del Method 98.4 F 84 18 123/93 H 94 L Room Air 10/11/24 11:41 10/11/24 12:30 10/11/24 12:19 10/11/24 12:30 10/11/24 12:30 10/11/24 12:19 Laboratory Results - last 24 hr 10/11/24 11:41: WBC 12.5 H, RBC 5.94, Hgb 17.3, Hct 50.8, MCV 85.5, MCH 29.1, MCHC 34.1, RDW 13.4, Plt Count 454 H, MPV 9.3, Neut % (Auto) 67.6, Lymph % (Auto) 24.3, Baldwin % (Auto) 5.6, Eos % (Auto) 1.3, Baso % (Auto) 1.0, Neut # (Auto) 8.5 H, Lymph # (Auto) 3.1, Baldwin # (Auto) 0.7, Eos # (Auto) 0.2, Baso # (Auto) 0.1, Sodium 141, Potassium 3.9, Chloride 107, Carbon Dioxide 23, Anion Gap 14.9, BUN 20, Creatinine 1.10, Estimated Creat Clear 107, Estimated GFR 69, Est GFR ( Amer) 84, Glucose 91, Calcium 10.1, Total Bilirubin 0.9, AST 33, ALT 22, Alkaline Phosphatase 92, Total Protein 8.4 H, Albumin 5.0, Globulin 3.4 H, Albumin/Globulin Ratio 1.5 I & O for Last 24 hours: Intake & Output 10/09/24 10/10/24 10/11/24 10/12/24 11:59 11:59 11:59 11:59 Weight 220 lb Constitutional Constitutional: no acute distress *Routine HEENT Exam Head: Present normocephalic Eye: Present EOMI ENT: Present mucous membranes moist *Routine Neck Exam Neck: Present full ROM *Routine Respiratory Exam Respiratory: Absent respiratory distress *Routine Cardiovascular Exam Cardiovascular: Absent tachycardia *Routine Abdominal Exam Abdominal: Present soft *Routine Rectal Exam Rectal:: deferred *Routine Genitalia Exam Genitalia:: deferred *Routine Extremities Exam Extremities: Present full ROM *Routine Skin Exam Skin: Absent erythema *Routine Neurological Exam Neurological: Present alert Results Results Lab Results Last 24 Hours:: Laboratory Results - last 24 hr 10/11/24 11:41: WBC 12.5 H, RBC 5.94, Hgb 17.3, Hct 50.8, MCV 85.5, MCH 29.1, MCHC 34.1, RDW 13.4, Plt Count 454 H, MPV 9.3, Neut % (Auto) 67.6, Lymph % (Auto) 24.3, Baldwin % (Auto) 5.6, Eos % (Auto) 1.3, Baso % (Auto) 1.0, Neut # (Auto) 8.5 H, Lymph # (Auto) 3.1, Baldwin # (Auto) 0.7, Eos # (Auto) 0.2, Baso # (Auto) 0.1, Sodium 141, Potassium 3.9, Chloride 107, Carbon Dioxide 23, Anion Gap 14.9, BUN 20, Creatinine 1.10, Estimated Creat Clear 107, Estimated GFR 69, Est GFR ( Amer) 84, Glucose 91, Calcium 10.1, Total Bilirubin 0.9, AST 33, ALT 22, Alkaline Phosphatase 92, Total Protein 8.4 H, Albumin 5.0, Globulin 3.4 H, Albumin/Globulin Ratio 1.5 Assessment and Plan *Assessment and plan (1) Esophageal obstruction due to food impaction: Status: Acute Category: Medical Code(s): T18.128A - Food in esophagus causing other injury, initial encounter; [id number].F3XA - Food entering into or through a natural orifice, initial encounter Plan: Esophagogastroduodenoscopy for foreign body removal I have discussed the risks and benefits including, but not limited to: Bleeding Infection Damage to surrounding tissue Inherent risks of sedation The patient agrees to proceed.
--- NOTE | 2024-10-11 12:57 | HMH.SCOPE ---
Procedure: Date: 10/11/24 Patient Date of :: 1970 Procedure Performed:: Esophagogastroscopy with foreign body removal Indications:: Esophageal foreign body Performing Provider:: Moises Pearson MD Referring Provider:: [facility] emergency department Sedation:: Monitored anesthesia care Procedure:: After informed consent was obtained the patient was taken to the endoscopy suite. Sedation ensued after the patient was transferred to the left lateral decubitus position. Pulse, blood pressure, and oxygen saturation were monitored throughout the procedure. An impacted foreign body consistent with ingested food particles was noted at the gastroesophageal junction. The material was removed in a piecemeal fashion utilizing a Dumont net. The endoscope was then advanced into the distal stomach. Retroflexion within the gastric lumen was accomplished. The gastroscope was carefully removed and the patient was transferred to recovery in stable condition. Please see findings and specimens below for detail. Findings:: Somewhat tortuous esophagus Impacted food particles/foreign body at gastroesophageal junction E suction device not able to be passed into the esophagus Foreign body removed via Dumont net in a retrograde fashion Specimens:: none Recommendations:: Proton pump inhibition Clear liquid diet for 24 hours...followed by full liquid diet for 24 hours...followed by soft diet. Complications:: No immediate Estimated blood obtained (mL): 0 Colonoscopy Component Colonoscopy Component Was a colonoscopy performed during today's procedure?: No
--- NOTE | 2024-10-11 13:55 | EXP.ANES.CKL ---
[facility] Disclaimer: The information contained in this section may have been updated after the patient was seen, as this information can be updated by other users. Social History Smoking Status: Never smoker second hand exposure: No alcohol intake: never substance use type: denies use current occupational status: unemployed Travel in the last 8 weeks?: None household members: significant other housing: house current occupational exposures/hazards: No caffeine: Yes [facility] Anesthesia Checklist Patient Identification Patient Identification: Verbal (Name & ) Structural Data Admitted From: Emergency Dept Planned Operative Procedure/s: egd Consent for Planned Operative Procedure(s) Verified: Yes Airway Assessment Mallampati Score:: Class II C-Spine Mobility Assessed: Yes TMJ Mobility Assessed: Yes Dentition: Edentulous Neurological Assessment Level of Consciousness: Awake, Alert and Appropriate Anesthesia Plan Anesthesia Risk discussed: Yes Anesthesia Plan: Verified ASA Class: II Anesthesia Type: MAC
== END 2024-10-11 14:25 | disposition home or self-care (01) ==
LOC: ER 12:52 → OR 13:01
PROVIDERS: Emergency Provider Emergency Medicine; PCP Pediatrics; Visit Provider Surgery
PROC: 0DJ08ZZ Inspection of Upper Intestinal Tract, Via Natural or Artificial Opening Endoscopic (ICD-10-PCS; CPT 43247; principal; 2024-10-11 13:00)
DX: T18.128A Food in esophagus causing other injury, initial encounter (principal); F17.220 Nicotine dependence, chewing tobacco, uncomplicated; W44.F3XA Food entering into or through a natural orifice, initial encounter
CPT/HCPCS: 43247; 80053; 85025; 93005; 99285; J1596; J2003; J2405; J2704